=== PATIENT | male | born 1975 | race African-American/Black ===

== ENCOUNTER 2021-07-09 08:53 | Emergency (ER) | payer OTHER, BC ==
[~2021-07-09] VITALS: Ht 15.2 cm; Wt 1.8 kg
[2021-07-09 09:00] VITALS: BP 128/71
--- NOTE | 2021-07-09 09:18 | NUR ---
46/M bib self to ED with c/o chest pain since this morning. Patient states while at rest he began having 5/10 pressure like pain. Patient states pain has subsided since arriving to ED, denies radiation of pain, sob, nausea, vomiting or diarrhea. Patient has no other complaints at this time.
[2021-07-09 09:34] VITALS: BP 125/74
--- NOTE | 2021-07-09 09:45 | NUR ---
Patient does not wish to proceed with medical care recommended by Dr. Lucas. Patient given information related to possible complications, up to and including , which could occur as a result of leaving hospital at this time. Patient verbalizes understanding of risks involved leaving against medical advice. Patient has signed AMA form.
== END 2021-07-09 09:45 | disposition left against medical advice (07) ==
LOC: MED 08:53
DX: R07.89 Other chest pain (principal); E11.9 Type 2 diabetes mellitus without complications; Z98.890 Other specified postprocedural states; Z86.73 Personal history of transient ischemic attack (TIA), and cerebral infarction without residual deficits; Z95.1 Presence of aortocoronary bypass graft
CPT/HCPCS: 93005; 99283